=== PATIENT | female | born 1975 | race Caucasian/White ===

== ENCOUNTER 2022-09-24 19:43 | Emergency (ER) | payer MEDICAID ==
[~2022-09-24] VITALS: Ht 162.6 cm; Wt 56.7 kg
--- NOTE | 2022-09-24 19:53 | NUR ---
[id number] FROM HOME C/O ABD PAIN, N/V X3 HOURS AFTER "EATING VINCENTIAN FOOD". PT AAOX4, NOTED TO BE HAVING SMALL AMOUNT OF CLEAR EMESIS. PLACED IN BED, VITALS CHECKED, AWAITING MD DENISE.
[2022-09-24] MEDS ORDERED: ONDANSETRON HCL/PF 4 MG/2 ML VIAL IVP ONE (20:00)
[2022-09-24] MEDS ORDERED: IV NS 0.9% 1,000 ML BAG IV ONE (20:00)
--- NOTE | 2022-09-24 20:15 | NUR ---
20GA TO LEFT HAND ESTABLISHED; BLOOD WORK COLLECTED AND GIVEN TO FITTER'S ASSISTANT AT BEDSIDE
[2022-09-24] MEDS ORDERED: ONDANSETRON HCL/PF 4 MG/2 ML VIAL ONE (20:17)
[2022-09-24 20:24] LABS: BASOPHILS % (AUTO) 0.2 % (0.0-2.0); EOSINOPHILS % (AUTO) 0.5 % (0.0-6.0); HEMATOCRIT 44 % (33-45); HEMOGLOBIN 14.2 g/dL (11.5-14.8); LYMPHOCYTES % (AUTO) 7.5 % (20.0-44.0); MEAN CORPUSCULAR HGB CONC 32 g/dl (31.0-36.0); MEAN CORPUSCULAR VOLUME 88 fL (82-100); MONOCYTES # (AUTO) 0.6 K/uL (0.1-1.30); MONOCYTES % (AUTO) 4.6 % (2.0-12.0); NEUTROPHILS # (AUTO) 11.4 K/uL (1.8-8.9); NEUTROPHILS % (AUTO) 87.2 % (43.0-81.0); PLATELET COUNT (AUTO) 369 K/uL (150-450); RED BLOOD CELL COUNT(AUTO) 4.98 MIL/uL (4.0-5.2); WHITE BLOOD COUNT (AUTO) 13.1 K/uL (4.3-11.0)
[2022-09-24 20:35] LABS: CALCIUM, SERUM 9.9 mg/dL (8.5-10.1); CREATININE 0.8 mg/dL (0.6-1.3); POTASSIUM 3.3 mmol/L (3.5-5.1)
[2022-09-24 20:48] LABS: ALBUMIN 3.8 g/dL (3.4-5.0); BILIRUBIN,DIRECT 0.1 mg/dL (0.0-0.2); BILIRUBIN,TOTAL 0.6 mg/dL (0.2-1.0); TOTAL PROTEIN, SERUM 9.1 g/dL (6.4-8.2)
[2022-09-24] MEDS ORDERED: ONDA4TAB11 PO (22:45)
[2022-09-25 02:57] VITALS: BP 129/71; TEMP 98.2; O2SAT 95
--- NOTE | 2022-09-25 02:57 | NUR ---
Patient discharged to home in stable condition. Written and verbal after care instructions given. Patient verbalizes understanding of instruction. IV removed. Catheter intact and site benign. Pressure and 4x4 applied to site. No bleeding noted.
== END 2022-09-25 02:58 | disposition home or self-care (01) ==
LOC: ER 19:46
DX: A05.9 Bacterial foodborne intoxication, unspecified (principal); R11.2 Nausea with vomiting, unspecified; Z60.2 Problems related to living alone
CPT/HCPCS: 99285; 96374; 96361; 85025; 80048; 83690; 80076; 36415; J2405; J7030